=== PATIENT | female | born 1985 | race Caucasian/White ===

== ENCOUNTER → 2016-10-23 | Outpatient (CLI) | payer OTHER ==
[2016-10-22 14:17] VITALS: BMI 24.1
[2016-10-23 13:54] VITALS: BP 125/78; PULSE 90; RESP 18; TEMP 98
--- NOTE | 2016-10-24 11:42 | P.CONS ---
History of Present Illness - Reason for Consult Consult date: 10/23/16 - History of Present Illness This is initial consultation visit for this 30 years old female with a chronic history of severe low back pain, with radiation to the right lower extremity, she reported that the pain started after she had the surgical interventions/ removal of abdominal hemangioma, and she continued to have severe low back pain with radiation to the right lower extremity and some numbness and tingling sensation, but most of the pain is localized in the low back area, interfering with her quality of life , she continues to work , and she describes the intensity of the pain as 6/10 increased with any activity to 10 over 10, she never tried interventional pain management and she is currently on pain medication Motrin 800 mg every 8 hours and Neurontin 300 mg 3 times a day, and this medication is not helping enough, she denies any fever or night sweats. Denies any change in the bowel movement or urination. She denies any motor or sensory deficits Past Medical History Past Medical History: Musculoskeletal Disorder Additional Past Medical History / Comment(s): endometriosis History of Any Multi-Drug Resistant Organisms: None Reported Past Surgical History: Section, Cholecystectomy, Tonsillectomy, Tubal Ligation Additional Past Surgical History / Comment(s): lap, endoscopy ERCP x2 Past Anesthesia/Blood Transfusion Reactions: No Reported Reaction Past Psychological History: Anxiety, Depression Smoking Status: Current every day smoker Past Alcohol Use History: Rare Past Drug Use History: None Reported - Past Family History Mother Family Medical History: Cancer Medications and Allergies Home Medications Medication Instructions Recorded Confirmed Type Gabapentin [Neurontin] 300 mg PO TID 10/22/16 10/23/16 History Ibuprofen [Motrin] 800 mg PO Q8HR PRN 10/22/16 10/23/16 History Allergies Allergy/AdvReac Type Severity Reaction Status Date / Time doxycycline Allergy Rash/Hives Verified 10/23/16 13:49 oxycodone HCl [From Percocet] Allergy Nausea & Verified 10/23/16 13:49 Vomiting sulfamethoxazole Allergy Rash/Hives Verified 10/23/16 13:49 [From Bactrim] trimethoprim [From Bactrim] Allergy Rash/Hives Verified 10/23/16 13:49 Physical Exam Vitals: Vital Signs Temp Pulse Resp BP 10/23/16 13:50 98 F 90 18 125/78 Social history : smoker , NO ETOH , NO Illegal drugs us Review of Systems : 1- Constitutional : no chills , no fever , no night sweats , 2- Ears : no ear discharge , no change in hearing 3-Nose, Mouth ,Throat ; no bleeding gums, no sore throat , no epistaxis , 4-Cardiovascular : Denies chest pain, , no orthopnea , no palpitation 5-Respiratory : Denies cough , no dyspnea , no hemoptysis 6-Gastrointestinal :, no change in bowel habits , no coffee- ground emesis . 7-Genitourinary : No hematuria , no discharge , no incontinence, 8-Musculoskeletal : No gait dysfunction , report low back pain , 9- Neurological : no ataxia , no tremor , no sezure , 10-Psychatric , no suicidal ideation no hallucination 11- Endocrine : no cold intolerence , no polyuria , no polydypsia , 12-Hematologic : no easy bleeding , no easy brusing , 13-Allergic / immunology : no angioedema , no wheezing ,no allergic rhinitis 14-Integumentary : no brttle nails , no change hair / nails , no foot/leg ulcers . Physical Examinations : 1-Constitutional : Cooperative , not in acute distress . 2-HEENT : nech ; supple , no Lymphadenopathy , no Thyromegaly , :eyes , no icterus, no photophobia . ENT : , normal oropharynx , no Thrush 3- Respiratory : Chest clear to auscultations Bilaterally , no wheezing . 4- Cardiovascular : regular rate and rhythem , S1 , S2 , no S3 , no S4. 5- Gastrointestinal: abdomen soft no tenderness , no organomegally . 6- Genitourinary : Defferred . 7-Integumentary : No cellulitis , no ulcers , normal skin turgor , no cyanotic . 8- neurologic : Cranial nerve II to XII intact , no focal neurological deffecit 9-psychatric : alert , oriented X 3 , appropriate affect , intact judgment and insight . 10-Lymphatic : no Lymphadenopathy. 11- musculoskeltal: normal gait , exams of the cervical spine = motor stregnth in the deltoid and biceps, normal right side , normal Left side exams of the Lumber spine = moter stegnth lower extremities , thigh and legs 4/5 Right side , 5/5 Left side deep tendon reflexes : normal Knee Jerk , normal ankle Jerk positive lumber facet Loading Test Range of motion of the lumbar spine Flexion 30 degrees, extension 10 degrees strait leg raising test , positive right side at 30 degree , negative on the left side Fabere test positive RT , and negative LT . Moderate tenderness over the Sacroiliac joint on the right side Results Comments: MRI of the lumbar spine done 10/09/2016 At [facility] ; L4-L5/L5 -S1 lumbar facet hypertrophy, and there is mild central disc bulging at the L5- S1 Assessment and Plan Plan: Assessment and plan = - Lumbar radiculopathy , lumbar spondylosis with facet arthropathy without myelopathy , - diagnoses, prognosis, and treatment options including but not limited to physical therapy, surgical interventions, interventional therapies and medication management including narcotics and adjuvant medication were discussed with the patient and all questions answered to the patient's satisfaction. Patient should continue her current pain medication Motrin 800 mg 3 times a day and Neurontin 300 mg 3 times a day, and the patient should be good candidate done diagnostic medial branch blocks lumbar area at L3-4 /L4 5/L5-S1 benefits successful then we will proceed with a radiofrequency ablation of the medial branch lumbar area, if patient continues to have pain after the diagnostic medial branch block we will consider doing lumbar epidural steroid injection. This options discussed with the patient in details, and she is willing to proceed Time with Patient: Greater than 30
== END | disposition home or self-care (01) ==
LOC: PNWHC3 13:29
PROVIDERS: ATTEND Specialist
DX: M54.16 Radiculopathy, lumbar region (principal); M47.816 Spondylosis without myelopathy or radiculopathy, lumbar region; M12.9 Arthropathy, unspecified; M51.36 Other intervertebral disc degeneration, lumbar region; F17.200 Nicotine dependence, unspecified, uncomplicated; Z88.1 Allergy status to other antibiotic agents; Z88.5 Allergy status to narcotic agent; Z88.2 Allergy status to sulfonamides; Z79.899 Other long term (current) drug therapy
CPT/HCPCS: 99211

== ENCOUNTER 2016-11-27 08:45 | Day surgery (SDC) | payer OTHER ==
[2016-11-23 11:17] VITALS: BMI 24.8
[~2016-11-27 08:45] MED LIST: LACTATED RINGERS 1,000 ML IV SCH
[2016-11-27 09:18] VITALS: RESP 16; TEMP 98.1
[2016-11-27] MEDS ORDERED: LIDOCAINE 1% 20 ML VIAL (10MG/ML) FOR IV START INTRADERMA ONE (09:30)
[2016-11-27] MEDS ORDERED: TRIAMCINOLONE ACETONIDE 40 MG/ML 1 ML VIAL ONE (10:22)
[2016-11-27] MEDS ORDERED: BUPIVACAINE (PF) 0.5% 30 ML VIAL ONE (10:22)
[2016-11-27] MEDS ORDERED: MIDAZOLAM 2 MG/2 ML VIAL ONE (10:22)
[2016-11-27] MEDS ORDERED: fentaNYL (PF) 50 MCG/ML 2 ML AMP ONE (10:22)
[2016-11-27 10:56] VITALS: PULSE 64
--- NOTE | 2016-11-27 11:10 | FL ---
EXAMINATION TYPE: FL guided pain mgmt statistic DATE OF EXAM: 11/27/2016 10:58 AM HISTORY: Pain 19 sec fl, 4 films scanned
[2016-11-27 11:18] VITALS: BP 105/72
--- NOTE | 2016-11-27 11:22 | P.PCN ---
Date of Procedure: 11/27/16 Procedure(s) Performed: PREOPERATIVE DIAGNOSIS : 1- Lumbar spondylosis with Facet Arthropathy without myelopathy . POSTOPERATIVE DIAGNOSIS: 1- Lumbar spondylosis with Facet Arthropathy without myelopathy . PROCEDURE: Diagnostic bilateral L3 -4 , L4 -5 , and L5-S1 medial branch block under fluoroscopy ANESTHESIA: Local with 1% lidocaine 6 ml ; IV sedation with Versed 2 mg and Fentanyl 100 mcg. EBL: Minimal COMPLICATION: None. IV FLUIDS: 100 mL of normal saline. PROCEDURE INDICATION: Chronic low back pain secondary to Facet arthropathy unresponsive to conservative treatment. PROCEDURE DESCRIPTION: the patient was seen and identified in the preop holding area , risks and benefits and possible complications of the procedure and alternative were discussed with the patient, and the patient agreed to proceed with the procedure and signed the consent IV was started and vital signs monitored during the procedure and fluoroscopy was used to maximize the benefit and accuracy of the needle placement, and sedation was given to decrease patient anxiety, patient was taken to the procedure room and placed in prone position vital signs monitored in the back prepped with chlorhexidine X3 then under strict sterile technique using a right oblique fluoroscopy ,the junction of the transverse process and the superior articulating process of the right L3- 4 , L4- 5, and L5-S1 vertebra which corresponding to the fluoroscopy image of the eye of the Damion dog on the block side for the medial branches and subsequently , after local infiltration of skin and subcu tissuies with lidocaine 1% one mL at each level ,then 22- gauge Quincke-type needles , 3 needle was used , each one of them placed at the junction of the base of the transverse process and the superior articular process at the appropriate level, and the needle was advanced until the periosteum contacted, needle placement confirmed with AP oblique and lateral view and after appropriate needle placement confirmed, and after negative aspiration for heme and CSF and there was no paresthesia 1-1/2 mL of Marcaine 0.5% mixed with 40 mg Kenalog , then half mL injected at each level after negative aspiration the needle subsequently removed and the same procedure repeated for the left side at left side at L3-4, L4- 5 and L5-S1 levels. At the end of the procedure and the needles removed and a bandage applied after the skin was cleaned the cleaning solution patient taken to recovery room in stable condition and monitors in the recovery room for 20-30 minutes and discharged home in stable condition after discharge criteria met and patient will follow up with the pain clinic in 2-4 weeks
[2016-11-27] MEDS ORDERED: IV FLUID CONTINUATION 1,000 ML IV ONE (11:25)
== END 2016-11-27 11:35 | disposition home or self-care (01) ==
LOC: ORPAIN 08:45
PROVIDERS: ATTEND Specialist
DX: G89.29 Other chronic pain (principal); M54.5 Low back pain; M47.816 Spondylosis without myelopathy or radiculopathy, lumbar region; M46.96 Unspecified inflammatory spondylopathy, lumbar region; Z88.1 Allergy status to other antibiotic agents; Z88.2 Allergy status to sulfonamides; Z91.09 Other allergy status, other than to drugs and biological substances
CPT/HCPCS: 64493; 64494; 64495; 99152; 99153; J2250; J3301; J3010

== ENCOUNTER → 2017-01-23 | Outpatient (CLI) | payer OTHER ==
[2017-01-23 14:32] VITALS: BP 107/71; PULSE 88; RESP 16; TEMP 98.5
--- NOTE | 2017-01-24 21:22 | P.PN ---
Subjective This is a follow-up visit for this 31 years FEMALE with a chronic history of severe low back pain with radiation to the right lower extremity, diagnosed with lumbar radiculopathy and lumbar spondylosis with facet arthropathy, patient had diagnostic medial branch block lumbar area done a few weeks ago, she reports that she had no benefit from the diagnostic medial branch block her pain was the same before and after the injection and even she feels that her pain was increased after the diagnostic medial branch block, she continued to have severe low back pain localized in the right side with radiation to the buttock and right lower extremity and right foot, she feels that her right leg is cold and associated with pins and needles sensation, she continued to take Motrin 800 mg when necessary and Neurontin 400 mg 3 times a day, she is done physical therapy and she has only short-term benefit from, she denies any motor or sensory deficits she denies any fever or night sweats and no change in the bowel movement or urination Objective - Vital Signs Vital signs: Vital Signs Temp 98.5 F 01/23/17 14:25 Pulse 88 01/23/17 14:25 Resp 16 01/23/17 14:25 BP 107/71 01/23/17 14:25 Pulse Ox 98 01/23/17 14:25 - Exam Physical Examinations : 1-Constitutiona : Cooperative , not in acute distress . 2-HEENT : nech ; supple , no Lymphadenopathy , normal thyroid size . eyes : no ptosis , no icterus, no photophobia . ENT : normal of hearing , normal oropharynx , no Thrush . 3- Respiratory : Chest clear to auscultations Bilaterally , no wheezing , no Rhonchi . 4- Cardiovascular : regular rate and rhythem , S1 , S2 , no S3 , no S4. 5- Gastrointestinal : abdomen soft no tenderness , bowel sounds positive all four quadrents , no organomegally . 6- Genitourinary : Defferred . 7- neurologic : Cranial nerve II to XII intact , no focal neurological deffecit . 8-psychatric : alert , oriented X 3 , appropriate affect , intact judgment and insight . 9-Lymphatic : no Lymphadenopathy . 10- musculoskeltal : Lumber spine = normal moter stegnth lower extremities ,thigh and legs .5/5 deep tendon reflexes : normal Knee Jerk , normal ankle Jerk . positive lumber facet Loading Test strait leg raising test positive at 30 degree , Rt , negative left Fabere test positive RT and negative LT . Sever tenderness over the Sacroiliac joint on the Right Assessment and Plan Plan: Assessment and plan= -chronic low back pain secondary to lumbar radiculopathy , lumbar spondylosis with lumbar facet arthropathy without myelopathy, Patient had no benefit after the diagnostic medial branch block, she should continue her current medication Motrin 800 mg every 8 hours and Neurontin 400 mg 3 times a day, she is already nonphysical therapy without any benefit, she doesn't want to have any surgical referral/intervention at this Interventional pain management= patient will be scheduled to have lumbar epidural steroid injections under fluoroscopy guidance (right side direct ) Procedure risk and benefits and alternatives discussed with the patient and she wished to proceed , Time with Patient: Less than 30
== END ==
LOC: PNWHC3 13:34
PROVIDERS: ATTEND Specialist
DX: M47.26 Other spondylosis with radiculopathy, lumbar region (principal); M46.86 Other specified inflammatory spondylopathies, lumbar region; G89.29 Other chronic pain; Z79.891 Long term (current) use of opiate analgesic
CPT/HCPCS: 99211

== ENCOUNTER → 2017-02-07 | Outpatient (CLI) | payer OTHER ==
--- NOTE | 2017-02-07 17:19 | US ---
EXAMINATION TYPE: US transvaginal DATE OF EXAM: 02/07/2017 COMPARISON: 06/15/2014 CLINICAL HISTORY: 31-year-old female N92.1 Metrorrhagia. Constant bleeding since December 24 with only a few days without, hx of tubal ligation and TECHNIQUE: Multiple transvaginal sonographic images of the pelvis are obtained. Date of LMP: 12/24/2016, Findings: Uterus: Retroverted measuring 7.6 x 5.5 x 4.5 cm. There is diffuse myometrial heterogeneity. Endometrial Stripe: 0.5 cm, slightly heterogeneous but otherwise within normal limits. Right Ovary: 4.3 x 2.0 x 2.2 cm for a volume of 9.9 mL. Follicular change is present. Left Ovary: 4.8 x 2.8 x 2.5 cm for volume of 17.5 mL. Follicular change is present with a 3.1 cm dom inant follicle or functional cyst. Small amount of cul-de-sac free fluid is likely physiologic. No evidence of adnexal abnormality. IMPRESSION: 1. Retroverted uterus. 2. Heterogeneous myometrium could reflect a few small fibrotic change or adenomyosis. 3. Follicular change in both ovaries. 4. Small amount of cul-de-sac free fluid likely physiologic.
== END | disposition home or self-care (01) ==
LOC: RADUSMAIN 15:42
PROVIDERS: ATTEND Obstetrics & Gynecology
DX: N85.4 Malposition of uterus (principal); N83.01 Follicular cyst of right ovary; N83.02 Follicular cyst of left ovary
CPT/HCPCS: 76830

== ENCOUNTER 2017-02-21 11:29 | Day surgery (SDC) | payer OTHER ==
[2017-02-18 16:13] VITALS: BMI 25.1
[~2017-02-21 11:29] MED LIST changes: +LIDOCAINE 1% 20 ML VIAL (10MG/ML) FOR IV START INTRADERMA ONE
[2017-02-21 11:39] VITALS: RESP 16; TEMP 96.5
--- NOTE | 2017-02-21 12:27 | P.PCN ---
Date of Procedure: 02/21/17 Preoperative Diagnosis: Right lumbar radiculopathy Postoperative Diagnosis: Same as above Procedure(s) Performed: Lumbar epidural steroid injection under fluoroscopic guidance Implants: Anesthesia: none (Local anesthesia with moderate sedation) Surgeon: Anabell Mercado Pathology: none sent Condition: stable Disposition: PACU Indications for Procedure: Operative Findings: Description of Procedure: The patient was seen in preop holding area consent was obtained then she was brought into the procedure room and placed in prone position. Skin was prepped with Betadine 3 and draped in a sterile manner. Lidocaine 1% was used to numb the skin up at the target point was at the L5-S1 level in the right paramedian approach. I used 20-gauge 3-1/2 inch Touhy epidural needle with loss-of- resistance to air to identify the epidural space. There was positive loss-of- resistance to air, negative aspiration for any CSF or blood, negative paresthesia .I then injected 1 mL of Omnipaque which showed typical epidurogram with AP and lateral views of fluoroscopy after that I injected 80 mg of Kenalog +2 MLS of Marcaine 0.5% +4 MLS of preservative free normal saline to a total volume of 7 MLS in epidural space. Patient tolerated procedure well.
[2017-02-21] MEDS ORDERED: IV FLUID CONTINUATION 1,000 ML IV ONE (12:41)
[2017-02-21 12:58] VITALS: BP 107/71; PULSE 65
--- NOTE | 2017-02-21 13:12 | FL ---
EXAMINATION TYPE: FL guided pain mgmt statistic DATE OF EXAM: 02/21/2017 CLINICAL HISTORY: Low back pain. TECHNIQUE: Fluoroscopy. COMPARISON: None. FINDINGS: Fluoroscopic guidance was provided during pain relief procedure performed by Dr. Mercado . A total of 7 seconds of fluoroscopic time was utilized during the procedure and one spot intraopera tive image is acquired. Single image acquired shows needle localization at posterior facet level in the lower lumbar spine. IMPRESSION: As Above.
== END 2017-02-21 13:07 | disposition home or self-care (01) ==
LOC: ORPAIN 11:29
PROVIDERS: ATTEND Anesthesiology
DX: M54.16 Radiculopathy, lumbar region (principal); Z88.2 Allergy status to sulfonamides; Z91.09 Other allergy status, other than to drugs and biological substances
CPT/HCPCS: 81025; 62323; J2250; J3301; Q9965; J3010

== ENCOUNTER → 2017-04-10 | Outpatient (CLI) | payer OTHER ==
[2017-04-10 14:58] VITALS: BP 117/81; PULSE 89; RESP 16; TEMP 97.8
--- NOTE | 2017-04-10 15:12 | P.PN ---
Progress Note - Text This is a 31-year-old female with lower back pain with radiation to the right lower extremity down to the right foot with numbness and tingling however the patient's MRI does not show any changes that would explain this radiculopathy pain. The patient were emotional and crying during the interview. 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 It uses Neurontin and Motrin for this pain but these medications have not been controlling her pain well. She did not respond favorably to the lumbar medial branch block or to the lumbar epidural steroid injection. By Physical exam she does have significant tenderness around the right sacroiliac joint. Since her symptoms do not correlate with the lumbar MRI changes I am going to send her to a neurologist to have an EMG done on the right lower extremity. We will also schedule the patient to have right sacroiliac joint steroid injection under fluoroscopic guidance.
== END ==
LOC: PNWHC3 14:24
PROVIDERS: ATTEND Anesthesiology
DX: M54.16 Radiculopathy, lumbar region (principal); Z79.899 Other long term (current) drug therapy
CPT/HCPCS: 99211

== ENCOUNTER 2017-05-31 12:11 | Emergency (ER) | payer OTHER ==
[2017-05-31] MEDS ORDERED: SODIUM CHLORIDE 0.9% 500 ML IV STA (12:30)
[2017-05-31] MEDS ORDERED: ONDANSETRON 4 MG/2 ML VIAL IVP STA (12:30)
[2017-05-31] MEDS ORDERED: SODIUM CHLORIDE 0.9% 1,000 ML IV STA ×2 (12:30)
[2017-05-31] MEDS ORDERED: HYDROmorphone 1 MG/ML 1 ML SYRINGE IVP STA (12:30)
[2017-05-31] MEDS ORDERED: RX INFO: IV CONTRAST WAS GIVEN 1 EACH MISC MISCELLANE PRN (12:50)
[2017-05-31 12:56] LABS: Basophils % (A) 0 %; CH 33.9; CHCM 35.8; Eosinophils # (A) 0.1 k/uL (0-0.7); Eosinophils % (A) 1 %; HCT 38.3 % (34.0-46.0); HGB 13.2 gm/dL (11.4-16.0); Luc # (Auto) 0.15; Luc % (Auto) 1; Lymphocytes # (A) 2.1 k/uL (1.0-4.8); Lymphocytes % (A) 20 %; MCH 32.7 pg (25.0-35.0); MCHC 34.4 g/dL (31.0-37.0); MCV 95.1 fL (80.0-100.0); Mean Platelet Volume 8.1; Monocytes # (A) 0.5 k/uL (0-1.0); Monocytes % (A) 4 %; Neutrophils # (A) 7.6 k/uL (1.3-7.7); Neutrophils % (A) 73 %; RBC 4.02 m/uL (3.80-5.40); RDW 12.9 % (11.5-15.5); WBC 10.4 k/uL (3.8-10.6); WBC (Perox) 10.94
[2017-05-31 13:07] LABS: Partial Thromboplastin Time 23.7 sec (22.0-30.0); Prothrombin Time 10.2 sec (9.0-12.0)
--- NOTE | 2017-05-31 13:11 | ED ---
General Adult HPI - General Chief complaint: Abdominal Pain Stated complaint: Abd Pain Time Seen by Provider: 05/31/17 12:27 Source: patient, RN notes reviewed, old records reviewed Mode of arrival: ambulatory Limitations: no limitations - History of Present Illness Initial comments: This is a 31-year-old female to the ER for evaluation. This patient presents for evaluation regarding the bowel pain. Severe right upper quadrant abdominal pain. Patient has medical history for gallbladder disease and liver hemangioma. Patient has had her gallbladder removed. Denies any other abdominal surgery. Positive nausea no vomiting no fevers no diarrhea. Patient states the pain has been for about a week but significantly worse starting today. She can't take the pain anymore and is coming to the emergency room for evaluation at this time - Related Data Home Medications Medication Instructions Recorded Confirmed Ibuprofen [Motrin] 800 mg PO Q8HR PRN 10/22/16 05/31/17 Gabapentin [Neurontin] 400 mg PO BID 01/23/17 05/31/17 [id number] [id number] 2 tab PO Q4HR PRN 05/31/17 05/31/17 [Excedrin] Butalb/APAP/Caff 50-325-40Mg 1 tab PO Q4H PRN 05/31/17 05/31/17 [Fioricet 50-325-40] HYDROcodone/APAP 10-325MG [[place] 1 tab PO ONCE PRN 05/31/17 05/31/17 10-325] Allergies Allergy/AdvReac Type Severity Reaction Status Date / Time adhesive Allergy Rash/Hives Verified 05/31/17 13:25 doxycycline Allergy Rash/Hives Verified 05/31/17 13:25 oxycodone HCl [From Percocet] Allergy Nausea & Verified 05/31/17 13:25 Vomiting sulfamethoxazole Allergy Rash/Hives Verified 05/31/17 13:25 [From Bactrim] trimethoprim [From Bactrim] Allergy Rash/Hives Verified 05/31/17 13:25 Review of Systems ROS Statement: Those systems with pertinent positive or pertinent negative responses have been documented in the HPI. ROS Other: All systems not noted in ROS Statement are negative. Past Medical History Past Medical History: Musculoskeletal Disorder Additional Past Medical History / Comment(s): endometriosis History of Any Multi-Drug Resistant Organisms: None Reported Past Surgical History: Section, Cholecystectomy, Tonsillectomy, Tubal Ligation Additional Past Surgical History / Comment(s): lap removal of hemangioma, endoscopy X2, ERCP x2, oral surgery Past Anesthesia/Blood Transfusion Reactions: No Reported Reaction Past Psychological History: Anxiety, Depression Smoking Status: Current every day smoker Past Alcohol Use History: Rare Past Drug Use History: None Reported - Past Family History Mother Family Medical History: Cancer General Exam Limitations: no limitations General appearance: alert, in no apparent distress, anxious Head exam: Present: atraumatic, normocephalic, normal inspection Eye exam: Present: normal appearance, PERRL, EOMI. Absent: scleral icterus, conjunctival injection, periorbital swelling ENT exam: Present: normal exam, mucous membranes moist Neck exam: Present: normal inspection. Absent: tenderness, meningismus, lymphadenopathy Respiratory exam: Present: normal lung sounds bilaterally. Absent: respiratory distress, wheezes, rales, rhonchi, stridor Cardiovascular Exam: Present: normal rhythm, tachycardia, normal heart sounds. Absent: systolic murmur, diastolic murmur, rubs, gallop, clicks GI/Abdominal exam: Present: soft, normal bowel sounds. Absent: distended, tenderness, guarding, rebound, rigid Extremities exam: Present: normal inspection, full ROM, normal capillary refill. Absent: tenderness, pedal edema, joint swelling, calf tenderness Back exam: Present: normal inspection Neurological exam: Present: alert, oriented X3, CN II-XII intact Psychiatric exam: Present: normal affect, normal mood Skin exam: Present: warm, dry, intact, normal color. Absent: rash Course Vital Signs 05/31/17 05/31/17 12:14 13:17 Temperature 98.1 F Pulse Rate 113 H 109 H Respiratory 16 16 Rate Blood Pressure 132/81 127/76 O2 Sat by Pulse 99 99 Oximetry - Reevaluation(s) Reevaluation #1: 05/31/17 13:11 At this point patient is much more relaxed, with adequate pain control Reevaluation #2: 05/31/17 14:13 Patient remains with adequate pain control at this time. Medical Decision Making - Medical Decision Making 31 female in the ER the bowel pain, recurrent right upper quadrant abdominal pain. Patient is negative lab test, negative CT. Patient's pain is well- controlled at this time. Patient will be discharged home - Lab Data Result diagrams: 05/31/17 12:42 05/31/17 12:42 Lab Results 05/31/17 05/31/17 05/31/17 Range/Units 12:42 12:42 12:42 WBC 10.4 (3.8-10.6) k/uL RBC 4.02 (3.80-5.40) m/uL Hgb 13.2 (11.4-16.0) gm/dL Hct 38.3 (34.0-46.0) % MCV 95.1 (80.0-100.0) fL MCH 32.7 (25.0-35.0) pg MCHC 34.4 (31.0-37.0) g/dL RDW 12.9 (11.5-15.5) % Plt Count 223 (150-450) k/uL Neutrophils % 73 % Lymphocytes % 20 % Monocytes % 4 % Eosinophils % 1 % Basophils % 0 % Neutrophils # 7.6 (1.3-7.7) k/uL Lymphocytes # 2.1 (1.0-4.8) k/uL Monocytes # 0.5 (0-1.0) k/uL Eosinophils # 0.1 (0-0.7) k/uL Basophils # 0.0 (0-0.2) k/uL PT (9.0-12.0) sec INR (<1.2) APTT (22.0-30.0) sec Sodium 137 (137-145) mmol/L Potassium 4.0 (3.5-5.1) mmol/L Chloride 108 H (98-107) mmol/L Carbon Dioxide 19 L (22-30) mmol/L Anion Gap 10 mmol/L BUN 13 (7-17) mg/dL Creatinine 0.60 (0.52-1.04) mg/dL Est GFR (MDRD) Af Amer >60 (>60 ml/min/1.73 sqM) Est GFR (MDRD) Non-Af >60 (>60 ml/min/1.73 sqM) Glucose 96 (74-99) mg/dL Plasma Lactic Acid Remy (0.7-2.0) mmol/L Calcium 10.7 H (8.4-10.2) mg/dL Total Bilirubin 0.4 (0.2-1.3) mg/dL AST 20 (14-36) U/L ALT 27 (9-52) U/L Alkaline Phosphatase 72 (38-126) U/L Total Protein 7.3 (6.3-8.2) g/dL Albumin 4.4 (3.5-5.0) g/dL Amylase <30 L (30-110) U/L Lipase 48 (23-300) U/L Urine Color Urine Appearance (Clear) Urine pH (5.0-8.0) Ur Specific Rogers (1.001-1.035) Urine Protein (Negative) Urine Glucose (UA) (Negative) Urine Ketones (Negative) Urine Blood (Negative) Urine Nitrite (Negative) Urine Bilirubin (Negative) Urine Urobilinogen (<2.0) mg/dL Ur Leukocyte Esterase (Negative) Urine WBC (0-5) /hpf Ur Squamous Epith Cells (0-4) /hpf Amorphous Sediment (None) /hpf Urine Bacteria (None) /hpf Urine Mucus (None) /hpf Urine HCG, Qual Not Detected (Not Detectd) 05/31/17 05/31/17 05/31/17 Range/Units 12:42 12:42 12:42 WBC (3.8-10.6) k/uL RBC (3.80-5.40) m/uL Hgb (11.4-16.0) gm/dL Hct (34.0-46.0) % MCV (80.0-100.0) fL MCH (25.0-35.0) pg MCHC (31.0-37.0) g/dL RDW (11.5-15.5) % Plt Count (150-450) k/uL Neutrophils % % Lymphocytes % % Monocytes % % Eosinophils % % Basophils % % Neutrophils # (1.3-7.7) k/uL Lymphocytes # (1.0-4.8) k/uL Monocytes # (0-1.0) k/uL Eosinophils # (0-0.7) k/uL Basophils # (0-0.2) k/uL PT 10.2 (9.0-12.0) sec INR 1.0 (<1.2) APTT 23.7 (22.0-30.0) sec Sodium (137-145) mmol/L Potassium (3.5-5.1) mmol/L Chloride (98-107) mmol/L Carbon Dioxide (22-30) mmol/L Anion Gap mmol/L BUN (7-17) mg/dL Creatinine (0.52-1.04) mg/dL Est GFR (MDRD) Af Amer (>60 ml/min/1.73 sqM) Est GFR (MDRD) Non-Af (>60 ml/min/1.73 sqM) Glucose (74-99) mg/dL Plasma Lactic Acid Remy 0.9 (0.7-2.0) mmol/L Calcium (8.4-10.2) mg/dL Total Bilirubin (0.2-1.3) mg/dL AST (14-36) U/L ALT (9-52) U/L Alkaline Phosphatase (38-126) U/L Total Protein (6.3-8.2) g/dL Albumin (3.5-5.0) g/dL Amylase (30-110) U/L Lipase (23-300) U/L Urine Color Yellow Urine Appearance Cloudy H (Clear) Urine pH 5.5 (5.0-8.0) Ur Specific Rogers 1.010 (1.001-1.035) Urine Protein Negative (Negative) Urine Glucose (UA) Negative (Negative) Urine Ketones Negative (Negative) Urine Blood Negative (Negative) Urine Nitrite Negative (Negative) Urine Bilirubin Negative (Negative) Urine Urobilinogen <2.0 (<2.0) mg/dL Ur Leukocyte Esterase Moderate H (Negative) Urine WBC 2 (0-5) /hpf Ur Squamous Epith Cells 6 H (0-4) /hpf Amorphous Sediment Occasional H (None) /hpf Urine Bacteria Rare H (None) /hpf Urine Mucus Few H (None) /hpf Urine HCG, Qual (Not Detectd) - Radiology Data Radiology results: report reviewed (CT abdomen and pelvis is negative for acute disease), image reviewed Disposition Clinical Impression: Abdominal pain Disposition: HOME SELF-CARE Condition: Good Instructions: Abdominal Pain (ED) Referrals: Meryl Foley MD [Primary Care Provider] - 1-2 days
[2017-05-31 13:12] LABS: ALT 27 U/L (9-52); AST 20 U/L (14-36); Alkaline Phosphatase 72 U/L (38-126); Amylase <30 U/L (30-110); Anion Gap 10 mmol/L; Blood Urea Nitrogen 13 mg/dL (7-17); Calcium 10.7 mg/dL (8.4-10.2); Carbon Dioxide 19 mmol/L (22-30); Chloride 108 mmol/L (98-107); Glucose 96 mg/dL (74-99); Non-African American GFR(MDRD) >60 (>60 ml/min/1.73 sqM); Sodium 137 mmol/L (137-145); Total Bilirubin 0.4 mg/dL (0.2-1.3); Total Protein 7.3 g/dL (6.3-8.2)
[2017-05-31 13:19] LABS: Amorphous Sediment,Urine Occasional /hpf; Appearance,Urine Cloudy (Clear); Bacteria,Urine Rare /hpf; Bilirubin,Urine Negative (Negative); Glucose,Urine (UA) Negative (Negative); Ketones,Urine Negative (Negative); Leukocyte Esterase,Urine Moderate (Negative); Mucus,Urine Few /hpf; Nitrite,Urine Negative (Negative); PH, Urine 5.5 (5.0-8.0); Particle Count 6817; Protein,Urine Negative (Negative); Squamous Epithelial Cell,Urine 6 /hpf (0-4); UA Billing (MACRO vs. MICRO) MICRO; Urobilinogen,Urine <2.0 mg/dL (<2.0); WBC,Urine 2 /hpf (0-5)
--- NOTE | 2017-05-31 13:47 | CT ---
EXAMINATION TYPE: CT abdomen pelvis w con DATE OF EXAM: 05/31/2017 COMPARISON: CT abdomen pelvis 05/21/2013 INDICATION: Patient complains of RUQ pain and history of "blood tumors." DLP: 584.3 mGycm, Automated exposure control for dose reduction was used. CONTRAST: 100 mL of Omnipaque 300. Study performed without Oral Contrast TECHNIQUE: Axial images were obtained from above the diaphragm to the pubic rami in the axial plane a t 5 mm thick sections. Reconstructed images are reviewed on the computer in the coronal plane. FINDINGS: Limited CT sections are obtained the lung bases. The lung bases are clear. CT ABDOMEN: Liver: Normal Spleen: Normal Pancreas: Normal Adrenal glands: The adrenal glands are normal. Gallbladder: Surgically absent. Kidneys: No masses are evident. No hydronephrosis is present. No cysts are present. Delayed images were obtained through the kidneys, which remain unremarkable. Aorta: Normal Inferior vena cava: Normal. CT PELVIS: Loops of bowel within the abdomen and pelvis are normal. There are loops of bowel which are incom pletely distended or lack oral contrast limiting their evaluation. Appendix: Normal as visualized. Urinary bladder: Normal. Genitourinary structures: Uterus is normal. Follicles appear to be present on the ovaries, more evide nt on the right. Free fluid is within the pelvis. This may be physiologic. Osseous structures: No suspicious lytic or sclerotic lesions. IMPRESSIONS: 1. No acute abnormality.
[2017-05-31 14:31] VITALS: BP 137/76; PULSE 100; RESP 18; TEMP 97.8
== END 2017-05-31 14:55 | disposition home or self-care (01) ==
LOC: EC 12:11
DX: R10.11 Right upper quadrant pain (principal); R11.0 Nausea; N80.9 Endometriosis, unspecified; F17.200 Nicotine dependence, unspecified, uncomplicated; Z90.49 Acquired absence of other specified parts of digestive tract; Z98.51 Tubal ligation status; Z79.899 Other long term (current) drug therapy; Z91.048 Other nonmedicinal substance allergy status; Z88.1 Allergy status to other antibiotic agents; Z88.5 Allergy status to narcotic agent; Z88.2 Allergy status to sulfonamides
CPT/HCPCS: 99284 ×2; 96374 ×2; 96375 ×2; 96361 ×3; 36415; 80053; 82150; 83605; 83690; 85025; 85610; 85730; 81001; 81025; 87086; 74177; J2405; J1170; Q9967

== ENCOUNTER → 2017-12-13 | Outpatient (CLI) | payer OTHER ==
--- NOTE | 2017-12-14 11:11 | US ---
EXAMINATION TYPE: US transvaginal DATE OF EXAM: 12/13/2017 COMPARISON: US & CT CLINICAL HISTORY: R10.2 Pelvic peroneal pain. TECHNIQUE: Transvaginal (TV). Date of LMP: 11/23/2017 EXAM MEASUREMENTS: Uterus: 8.5 x 5.3 x 5.7 cm Endometrial Stripe: 0.5 cm, cm Right Ovary: 4.7 x 3.7 x 2.9 cm Left Ovary: 2.9 x 1.7 x 2.3 cm 1. Uterus: Retroverted wnl 2. Endometrium: wnl 3. Right Ovary: complex lesion measures 2.3 x 2.4 x 2.5 cm. 4. Left Ovary: wnl 5. Bilateral Adnexa: wnl 6. Posterior cul-de-sac: small amount of free fluid IMPRESSION: 1. Complex right ovarian lesion with internal echoes may reflect hemorrhagic cyst. Lesion of other et iology not excluded. Follow-up in 6 weeks advised.
--- NOTE | 2017-12-16 09:09 | MM ---
Reason for exam: screening (asymptomatic). Baseline mammogram. Physical Findings: Nurse did not find any significant physical abnormalities on exam. MG Diagnostic Mammo w CAD GONSALO Bilateral CC and MLO view(s) were taken. The breast tissue is heterogeneously dense. This may lower the sensitivity of mammography. There is no discrete abnormality. These results were verbally communicated with the patient and result sheet given to the patient on 12/13/17. ASSESSMENT: Incomplete: need additional imaging evaluation, BI-RAD 0 RECOMMENDATION: Ultrasound of the left breast. (palpable) [facility] will attempt to contact patient to return for ultrasound.
--- NOTE | 2017-12-16 09:13 | USB ---
Reason for exam: additional evaluation requested from abnormal screening. Physical Findings: Breast exam preformed at baseline screening. US Breast Limited LT Left breast ultrasound demonstrates no cystic or solid lesion seen. These results were verbally communicated with the patient and result sheet given to the patient on 12/13/17. ASSESSMENT: Negative, BI-RAD 1 RECOMMENDATION: Routine screening mammogram of both breasts at age 38. Manage on a clinical basis with regard to left pain.
== END | disposition home or self-care (01) ==
LOC: RADMAMWWP 15:59
PROVIDERS: ATTEND Obstetrics & Gynecology
DX: N64.4 Mastodynia (principal); N63.0 Unspecified lump in unspecified breast; R92.8 Other abnormal and inconclusive findings on diagnostic imaging of breast; N83.8 Other noninflammatory disorders of ovary, fallopian tube and broad ligament
CPT/HCPCS: 76830; 77066

== ENCOUNTER → 2018-03-21 | Outpatient (CLI) | payer OTHER ==
--- NOTE | 2018-03-22 15:27 | MR ---
EXAMINATION TYPE: MR brain/cspine wo DATE OF EXAM: 03/21/2018 COMPARISON: None HISTORY: migraines, neck pain CONTRAST: Performed utilizing 0 mL intravenous Gadavist gadolinium contrast. TECHNIQUE: Multiplanar, multiecho imaging on a 3.0 Reyna magnet is performed through the brain. Stud y is performed within 24 hours of arrival to the hospital. The craniovertebral junction is normal. The pituitary is normal. Diffusion-weighted imaging is performed. No abnormal hyperintensity is present to suggest an acute i ntracranial infarct or acute ischemic change. Signal through the brain appears normal. Ventricles and sulci are appropriate for the patient age. IMPRESSIONS: 1. Normal MRI brain. EXAMINATION TYPE: MR brain/cspine wo DATE OF EXAM: 03/21/2018 COMPARISON: None HISTORY: migraines, neck pain CONTRAST: Performed utilizing 0 mL intravenous Gadavist gadolinium contrast. TECHNIQUE: Multiplanar multiecho imaging on a 3.0 Reyna magnet is performed through the cervical spin e. FINDINGS: The craniovertebral junction is normal. Vertebral body alignment is normal. C7-T1: No focal disc herniation or significant disc bulge is evident. No spinal canal stenosis or n eural foraminal stenosis is present. C6-7: Mild disc bulge has anterior thecal sac contact. No cord contact is evident. No spinal canal st enosis or neural foraminal stenosis is present.. C5-6: Broad-based disc bulge is present with moderate anterior thecal sac compression. In the sagitta l plane there is a suggestion there may be some subligamentous disc extension beyond the endplates of C5-6. This is in close approximation with spinal cord. No cord deformity is evident. No spinal canal stenosis is present. Uncovertebral joint hypertrophy and/or disc bulge may cause moderate right fora sonido narrowing. Disc desiccation may be present.. C4-5: No focal disc herniation or significant disc bulge is evident. No spinal canal stenosis or jazmine ral foraminal stenosis is present. C3-4: No focal disc herniation or significant disc bulge is evident. No spinal canal stenosis or jazmine ral foraminal stenosis is present. C2-3: No focal disc herniation or significant disc bulge is evident. No spinal canal stenosis or jazmine ral foraminal stenosis is present. IMPRESSIONS: 1. Disc bulge with possible subligamentous disc extension C5-6 with moderate anterior thecal sac comp ression. Close approximation with spinal cord without cord contact or deformity. 2. Moderate right foraminal narrowing C5-6
--- NOTE | 2018-03-23 10:06 | MR ---
EXAMINATION TYPE: MR lumbar spine wo con DATE OF EXAM: 03/21/2018 COMPARISON: None HISTORY: Lumbago CONTRAST: 0 mL intravenous Gadavist. TECHNIQUE: Multiplanar, multisequence images of the lumbar spine were acquired. FINDINGS: Cord terminates at the L1-2 level. Disc hydration levels are normal. Disc heights are preserved. Vertebral body heights are preserved. A lignment is normal. No suspicious disc bulge is evident. No spinal canal stenosis or neural foraminal stenosis is present. Facets are unremarkable. IMPRESSION: 1. Normal noncontrast MRI lumbar spine.
== END | disposition home or self-care (01) ==
LOC: RADMRIMAIN 16:24
PROVIDERS: ATTEND Psychiatry & Neurology Pain Medicine
DX: M99.71 Connective tissue and disc stenosis of intervertebral foramina of cervical region (principal); M50.222 Other cervical disc displacement at C5-C6 level; M54.5 Low back pain; R51 Headache; Z88.2 Allergy status to sulfonamides; Z88.1 Allergy status to other antibiotic agents; Z91.010 Allergy to peanuts; Z91.048 Other nonmedicinal substance allergy status
CPT/HCPCS: 70551; 72141; 72148

== ENCOUNTER → 2018-04-25 | Outpatient (CLI) | payer OTHER ==
[2018-04-25 17:03] LABS: HCT 37.1 % (34.0-46.0); HGB 12.5 gm/dL (11.4-16.0); MCH 31.4 pg (25.0-35.0); MCHC 33.7 g/dL (31.0-37.0); MCV 93.2 fL (80.0-100.0); Mean Platelet Volume 7.9; Platelet Count 223 k/uL (150-450); RBC 3.98 m/uL (3.80-5.40); RDW 11.8 % (11.5-15.5); WBC 8.3 k/uL (3.8-10.6)
[2018-04-25 17:17] LABS: ALT 15 U/L (9-52); AST 17 U/L (14-36); Albumin 4.2 g/dL (3.5-5.0); Alkaline Phosphatase 51 U/L (38-126); Anion Gap 7 mmol/L; Blood Urea Nitrogen 14 mg/dL (7-17); Calcium 10.2 mg/dL (8.4-10.2); Carbon Dioxide 27 mmol/L (22-30); Chloride 106 mmol/L (98-107); Glucose 79 mg/dL (74-99); Potassium 4.4 mmol/L (3.5-5.1); Sodium 140 mmol/L (137-145); Total Bilirubin 0.2 mg/dL (0.2-1.3); Total Protein 6.7 g/dL (6.3-8.2)
== END ==
LOC: LABWHC1 16:13
PROVIDERS: ATTEND Psychiatry & Neurology Pain Medicine
DX: H53.8 Other visual disturbances (principal); R51 Headache
CPT/HCPCS: 36415; 80053; 83735; 85027

== ENCOUNTER 2018-05-30 15:02 | Emergency (ER) | payer OTHER ==
[2018-05-30 15:24] VITALS: BP 117/81; TEMP 98.1
--- NOTE | 2018-05-30 15:37 | ED ---
General Adult HPI - General Chief complaint: Upper Respiratory Infection Stated complaint: congestion,cough Time Seen by Provider: 05/30/18 15:28 Source: patient, RN notes reviewed Mode of arrival: ambulatory Limitations: no limitations - History of Present Illness Initial comments: Patient 32-year-old female presented to the emergency room today with chief complaint of cough congestion over the last 8 days. She states for the past 3 days she's had some back pain. She states it feels like she pulled muscle. Patient does admit that the pain is constant but worse when she coughs. Patient says she's been using ibuprofen. She states she cannot seem to stop coughing. She does admit that there was some sputum production days ago but has since stopped. Patient denies any other complaints. Patient denies any recent travel. Denies any leg pain or swelling. Denies any OCP's. Patient denies any recent fever, chills, shortness of breath, chest pain, abdominal pain , nausea or vomiting, numbness or tingling, headaches or visual changes, or any other complaints. - Related Data Home Medications Medication Instructions Recorded Confirmed Ibuprofen [Motrin] 800 mg PO Q8HR PRN 10/22/16 05/31/17 Gabapentin [Neurontin] 400 mg PO BID 01/23/17 05/31/17 [id number]-[id number]-[id number] 2 tab PO Q4HR PRN 05/31/17 05/31/17 [Excedrin] Butalb/APAP/Caff 50-325-40Mg 1 tab PO Q4H PRN 05/31/17 05/31/17 [Fioricet 50-325-40] HYDROcodone/APAP 10-325MG [[place] 1 tab PO ONCE PRN 05/31/17 05/31/17 10-325] Previous Rx's Medication Instructions Recorded Famotidine [Pepcid] 40 mg PO BID #60 tab 05/31/17 HYDROcodone/APAP 5-325MG [[place] 1 tab PO Q6HR PRN #20 tab 05/31/17 5-325] Ondansetron Odt [Zofran ODT] 4 mg PO Q8HR PRN #30 tab 05/31/17 Pantoprazole Sodium [Protonix] 40 mg PO DAILY #30 tablet.dr 05/31/17 Benzonatate [Tessalon Perles] 100 mg PO TID PRN #20 capsule 05/30/18 predniSONE 50 mg PO DAILY #5 tab 05/30/18 Allergies Allergy/AdvReac Type Severity Reaction Status Date / Time adhesive Allergy Rash/Hives Verified 05/31/17 13:25 doxycycline Allergy Rash/Hives Verified 05/31/17 13:25 oxycodone HCl [From Percocet] Allergy Nausea & Verified 05/31/17 13:25 Vomiting sulfamethoxazole Allergy Rash/Hives Verified 05/31/17 13:25 [From Bactrim] trimethoprim [From Bactrim] Allergy Rash/Hives Verified 05/31/17 13:25 Review of Systems ROS Statement: Those systems with pertinent positive or pertinent negative responses have been documented in the HPI. ROS Other: All systems not noted in ROS Statement are negative. Past Medical History Past Medical History: Musculoskeletal Disorder Additional Past Medical History / Comment(s): endometriosis History of Any Multi-Drug Resistant Organisms: None Reported Past Surgical History: Section, Cholecystectomy, Tonsillectomy, Tubal Ligation Additional Past Surgical History / Comment(s): lap removal of hemangioma, endoscopy X2, ERCP x2, oral surgery Past Anesthesia/Blood Transfusion Reactions: No Reported Reaction Past Psychological History: Anxiety, Depression Smoking Status: Current every day smoker Past Alcohol Use History: Rare Past Drug Use History: None Reported - Past Family History Mother Family Medical History: Cancer General Exam - General Exam Comments Initial Comments: General: The patient is awake and alert, in no distress, and does not appear acutely ill. Eye: Pupils are equal, round and reactive to light. Extra-ocular movements are intact. No nystagmus. There is normal conjunctiva bilaterally. No signs of icterus. Ears, nose, mouth and throat: There are moist mucous membranes and no oral lesions. Neck: The neck is supple, there is no tenderness or JVD. Cardiovascular: There is a regular rate and rhythm. No murmur, rub or gallop is appreciated. Respiratory: Lungs are clear to auscultation, respirations are non-labored, breath sounds are equal. No wheezes, stridor, rales, or rhonchi. Musculoskeletal: Normal ROM, no tenderness. Sensation intact. Strength 5/5. Pulses equal bilaterally 2+. Neurological: A&O x 3. CN II-XII intact, There are no obvious motor or sensory deficits. Coordination appears grossly intact. Speech is normal. Skin: Skin is warm and dry and no rashes or lesions are noted. Psychiatric: Cooperative, appropriate mood & affect, normal judgment. Limitations: no limitations Course Vital Signs 05/30/18 15:22 Temperature 98.1 F Pulse Rate 85 Respiratory 18 Rate Blood Pressure 117/81 O2 Sat by Pulse 99 Oximetry Medical Decision Making - Medical Decision Making Patient's chest x-ray reviewed as negative for any acute abnormality. Patient' s vitals are stable. Patient does admit to cough congestion over the past week and last 3 days and have some upper back pain with the cough that is worse. It is worse on palpation to the upper back. This felt musculoskeletal from coughing. Patient's advised continue anti-inflammatories. Patient will prescription cough medication, steroids. She is advised on management. The emergency room symptoms increase or worsen Disposition Clinical Impression: Upper respiratory infection, Upper back strain Disposition: HOME SELF-CARE Condition: Good Instructions: Upper Respiratory Infection (ED) Additional Instructions: Please use medication as discussed. Please follow-up with family doctor in the next 2 days of symptoms have not improved. Please return to emergency room if the symptoms increase or worsen or for any other concerns. Prescriptions: Benzonatate [Tessalon Perles] 100 mg PO TID PRN #20 capsule PRN Reason: Cough predniSONE 50 mg PO DAILY #5 tab Is patient prescribed a controlled substance at d/c from ED?: No Referrals: Meryl Foley MD [Primary Care Provider] - 1-2 days Time of Disposition: 16:21
--- NOTE | 2018-05-30 16:10 | XR ---
EXAMINATION TYPE: XR chest 2V DATE OF EXAM: 05/30/2018 COMPARISON: 01/01/2014 HISTORY: Chest pain TECHNIQUE: Frontal and lateral views of the chest are obtained. FINDINGS: There is no focal air space opacity. No evidence for pneumothorax. No pleural effusion. The cardiac silhouette size is within normal limits. The osseous structures are grossly intact. IMPRESSION: 1. No acute cardiopulmonary process.
[2018-05-30 16:34] VITALS: PULSE 83; RESP 20
== END 2018-05-30 16:34 | disposition home or self-care (01) ==
LOC: EC 15:02
DX: S29.012A Strain of muscle and tendon of back wall of thorax, initial encounter (principal); J06.9 Acute upper respiratory infection, unspecified; F17.200 Nicotine dependence, unspecified, uncomplicated; Z79.899 Other long term (current) drug therapy; Z88.1 Allergy status to other antibiotic agents; Z88.2 Allergy status to sulfonamides; Z88.8 Allergy status to other drugs, medicaments and biological substances; Z91.048 Other nonmedicinal substance allergy status
CPT/HCPCS: 71046; 99283

== ENCOUNTER 2019-12-01 08:30 | Emergency (ER) | payer OTHER ==
--- NOTE | 2019-12-01 08:52 | ED ---
Fall HPI - General Chief Complaint: Fall Stated Complaint: fell on saturday, R side shoulder pain Time Seen by Provider: 12/01/19 08:38 Source: patient, RN notes reviewed Mode of arrival: ambulatory Limitations: no limitations - History of Present Illness Initial Comments: This a 33-year-old female presents emergency Department with chief complaint of a fall on Saturday. Patient states she was in her ditch cleaned out she states that she had some hedge clippers states that her foot Stuck and she turned, twisted and fell to the ground. She states she's not exactly sure how she fell on her shoulder and she complains of right shoulder pain that goes into her thoracic back but denies any spinal pain. Patient denies any low back pain. She does admit that she has some right hip pain that feels bruised she has been trying to do some stretching she denies any difficulty ambulating other than feeling some mild discomfort. She denies any bowel incontinence or bladder retention denies any saddle anesthesias. She has no current abdominal pain no head injury no neck discomfort. She states she's been taking some Tylenol Motrin which has not been helping much of her pain she states that she feels that she's having muscle spasms. Patient offers no other complaints at this time. - Related Data Home Medications Medication Instructions Recorded Confirmed Ibuprofen [Motrin] 800 mg PO Q8HR PRN 10/22/16 05/31/17 Gabapentin [Neurontin] 400 mg PO BID 01/23/17 05/31/17 [id number] [id number] 2 tab PO Q4HR PRN 05/31/17 05/31/17 [Excedrin] Butalb/APAP/Caff 50-325-40Mg 1 tab PO Q4H PRN 05/31/17 05/31/17 [Fioricet 50-325-40] HYDROcodone/APAP 10-325MG [[place] 1 tab PO ONCE PRN 05/31/17 05/31/17 10-325] Previous Rx's Medication Instructions Recorded Famotidine [Pepcid] 40 mg PO BID #60 tab 05/31/17 HYDROcodone/APAP 5-325MG [[place] 1 tab PO Q6HR PRN #20 tab 05/31/17 5-325] Ondansetron Odt [Zofran ODT] 4 mg PO Q8HR PRN #30 tab 05/31/17 Pantoprazole Sodium [Protonix] 40 mg PO DAILY #30 tablet. 05/31/17 Benzonatate [Tessalon Perles] 100 mg PO TID PRN #20 capsule 05/30/18 predniSONE 50 mg PO DAILY #5 tab 05/30/18 Cyclobenzaprine [Flexeril] 10 mg PO TID PRN #15 tab 12/01/19 Ibuprofen [Motrin] 600 mg PO Q8HR PRN #20 tab 12/01/19 Allergies Allergy/AdvReac Type Severity Reaction Status Date / Time adhesive Allergy Rash/Hives Verified 12/01/19 08:38 doxycycline Allergy Rash/Hives Verified 12/01/19 08:38 oxycodone HCl [From Percocet] Allergy Nausea & Verified 12/01/19 08:38 Vomiting sulfamethoxazole Allergy Rash/Hives Verified 12/01/19 08:38 [From Bactrim] trimethoprim [From Bactrim] Allergy Rash/Hives Verified 12/01/19 08:38 Review of Systems ROS Statement: Those systems with pertinent positive or pertinent negative responses have been documented in the HPI. ROS Other: All systems not noted in ROS Statement are negative. Past Medical History Past Medical History: Musculoskeletal Disorder Additional Past Medical History / Comment(s): endometriosis, chronic back pain, migraines, sacroileitis History of Any Multi-Drug Resistant Organisms: None Reported Past Surgical History: Section, Cholecystectomy, Hysterectomy, Tonsillectomy, Tubal Ligation Additional Past Surgical History / Comment(s): lap removal of hemangioma, endoscopy X2, ERCP x2, oral surgery Past Anesthesia/Blood Transfusion Reactions: No Reported Reaction Past Psychological History: Anxiety, Depression Smoking Status: Current every day smoker Past Alcohol Use History: Rare Past Drug Use History: None Reported - Past Family History Mother Family Medical History: Cancer General Exam Limitations: no limitations General appearance: alert, in no apparent distress Head exam: Present: atraumatic, normocephalic, normal inspection Eye exam: Present: normal appearance, PERRL, EOMI. Absent: scleral icterus, conjunctival injection, periorbital swelling ENT exam: Present: normal exam, normal oropharynx, mucous membranes moist Neck exam: Present: normal inspection, full ROM. Absent: tenderness (Patient reports no tenderness of the cervical spine or paraspinal muscles), meningismus, lymphadenopathy Respiratory exam: Present: normal lung sounds bilaterally. Absent: respiratory distress, wheezes, rales, rhonchi, stridor, chest wall tenderness, decreased breath sounds, prolonged expiratory Cardiovascular Exam: Present: regular rate (Patient was noted to have heart rate of 115 on triage though during exam 88), normal rhythm, normal heart sounds. Absent: systolic murmur, diastolic murmur, rubs, gallop, clicks GI/Abdominal exam: Present: soft, normal bowel sounds. Absent: distended, tenderness, guarding, rebound, rigid Extremities exam: Present: other (Right shoulder slightly decreased range of motion secondary to pain, neurovascular intact upper and lower extremities, no obvious deformity no ecchymosis noted no abrasions. Patient reports right shoulder tenderness on the lateral aspect, posterior aspect. No clavicular tenderness full range of motion of the right elbow, wrist, hand right hip is mildly tender diffusely with palpation patient has full range of motion and neurovascular intact) Back exam: Present: normal inspection, full ROM, tenderness (Patient reports mild tenderness with palpation to the paraspinal no thoracic or lumbar spinal tenderness), paraspinal tenderness. Absent: vertebral tenderness Neurological exam: Present: alert, oriented X3, CN II-XII intact, reflexes normal. Absent: motor sensory deficit Skin exam: Present: warm, dry, intact, normal color. Absent: rash Course Vital Signs 12/01/19 12/01/19 08:31 09:36 Temperature 97.7 F 98.3 F Pulse Rate 115 H 83 Respiratory 20 18 Rate Blood Pressure 113/80 100/66 O2 Sat by Pulse 98 97 Oximetry Medical Decision Making - Medical Decision Making X-rays reviewed which show no acute osseous abnormality. Patient was provided pain control in emergency department. Patient pain is improved at this time. Patient was able to ambulate in the emergency department and in the room with no significant difficulty. She is neurologically intact. Patient will be discharged in stable condition with pain control. Patient will follow-up with primary care physician. Patient was provided orthopedics at this time. Disposition Clinical Impression: Fall, Sprain of right shoulder, Contusion of right hip, Spasm of thoracic back muscle Disposition: HOME SELF-CARE Condition: Stable Instructions (If sedation given, give patient instructions): Shoulder Sprain (ED), Hip Contusion (ED) Additional Instructions: Please return to the Emergency Department if symptoms worsen or any other concerns. Prescriptions: Cyclobenzaprine [Flexeril] 10 mg PO TID PRN #15 tab PRN Reason: Muscle Spasm Ibuprofen [Motrin] 600 mg PO Q8HR PRN #20 tab PRN Reason: Pain Is patient prescribed a controlled substance at d/c from ED?: No Referrals: Lisa Palmer FNPBC [REFERRING] - 1-2 days Og Escobar DO [Medical Doctor] - 1-2 days Time of Disposition: 09:57
[2019-12-01] MEDS ORDERED: ORPHENADRINE 30 MG/ML 2 ML VIAL IM STA (09:24)
[2019-12-01] MEDS ORDERED: MORPHINE SULFATE 4 MG/ML SYRINGE IM STA (09:24)
--- NOTE | 2019-12-01 09:32 | XR ---
EXAMINATION TYPE: XR Hip Complete RT DATE OF EXAM: 12/01/2019 COMPARISON: None HISTORY: Fall, pain TECHNIQUE: 2 view right hip FINDINGS: Femoral head articulates with the acetabulum. No acute fractures or dislocations are eviden t. Soft tissues are unremarkable. IMPRESSION: 1. Normal 2 view right hip
--- NOTE | 2019-12-01 09:32 | XR ---
EXAMINATION TYPE: XR shoulder complete RT DATE OF EXAM: 12/01/2019 COMPARISON: NONE HISTORY: Pain TECHNIQUE: Shoulder examined in 3 projections FINDINGS: The humeral head articulates with the glenoid. The acromio-clavicular junction is normal. No acute fractures or dislocations are evident. A follow up study can be performed 7-10 days from acute trauma for continued pain. IMPRESSION: 1. Normal three-view right Shoulder
--- NOTE | 2019-12-01 09:33 | XR ---
EXAMINATION TYPE: XR thoracic spine 2V DATE OF EXAM: 12/01/2019 COMPARISON: None HISTORY: Fall, pain TECHNIQUE: 3 view thoracic spine FINDINGS: Mild scoliosis present with the convexity to the right centered at T10. There are 12 thoracic type vertebral bodies. Pedicles are intact. Disc heights are preserved. Vertebr al body heights are preserved. IMPRESSION: 1. Mild scoliosis which can be related to patient positioning or muscle spasm. 2. No acute osseous abnormality.
[2019-12-01 09:37] VITALS: BP 100/66; PULSE 83; RESP 18; TEMP 98.3
[2019-12-01] MEDS ORDERED: ACET/COD 300 MG/30 MG STARTER PACK 6 TAB BTL PO STA (09:58)
== END 2019-12-01 10:06 | disposition home or self-care (01) ==
LOC: EC 08:30 → SUPCPDRO 08:30 → EC 10:06
DX: S43.401A Unspecified sprain of right shoulder joint, initial encounter (principal); M62.830 Muscle spasm of back; F17.200 Nicotine dependence, unspecified, uncomplicated; Z91.048 Other nonmedicinal substance allergy status; Z88.1 Allergy status to other antibiotic agents; Z88.2 Allergy status to sulfonamides; Z88.5 Allergy status to narcotic agent; W19.XXXA Unspecified fall, initial encounter
CPT/HCPCS: 72070; 73502; 73030; 99283; 96372 ×2; J2270; J2360

== ENCOUNTER → 2020-02-01 | Outpatient (CLI) | payer OTHER ==
--- NOTE | 2020-02-01 21:13 | MR ---
EXAMINATION TYPE: MR shoulder RT wo con DATE OF EXAM: 02/01/2020 COMPARISON: Radiograph 12/31/2019 HISTORY: 34-year-old female with right shoulder pain after fall TECHNIQUE: Multiplanar, multisequence imaging of the right shoulder is performed without contrast. FINDINGS: Long head biceps tendon is intact. Subscapularis tendon is intact. AC joint is intact. Both supraspinatus and infraspinatus tendons are intact with trace fluid in the subdeltoid and subacr omial bursa. Evaluation of the glenohumeral joint shows physiologic joint fluid. Glenohumeral joint articular cart ilage is maintained. A defect along the labral chondral junction of the anterior superior glenoid suggests a sublabral for amen. However, there is some increased signal extending into the substance of the labrum posterior to the biceps anchor extending to the superior aspect of the posterior labrum. No para labral cyst. No Hill-Sachs deformity or os acromiale. No suspicious bone marrow replacement. IMPRESSION: 1. No rotator cuff tendon tear. 2. Findings suspicious for a small SLAP tear.
== END | disposition home or self-care (01) ==
LOC: RADMRIMAIN 14:57
PROVIDERS: ATTEND Orthopaedic Surgery
DX: M25.511 Pain in right shoulder (principal)

== ENCOUNTER 2020-03-21 16:09 | Emergency (ER) | payer OTHER ==
[2020-03-21 16:16] VITALS: BP 109/69; PULSE 82; RESP 20; TEMP 98.2
--- NOTE | 2020-03-21 17:46 | CT ---
EXAMINATION TYPE: CT brain cspine wo con DATE OF EXAM: 03/21/2020 COMPARISON: MRI brain and cervical spine March 21, 2018 HISTORY: Head injury x2 days ago with headac he and neck pain CT DLP: 1256.3 mGycm. Automated Exposure Control for Dose Reduction was Utilized. TECHNIQUE: CT scan of the head and cervical spine are performed without contrast. FINDINGS: There is no acute intracranial hemorrhage, mass effect, or midline shift identified. The ventricles and sulci are within normal limits in size. Deluca-white matter differentiation is maintain ed. The globes are intact and the visualized sinuses are clear. The calvarium is intact. Cervical spine is visualized in its entirety from C1 through upper thoracic levels and redemonstrates straightened alignment without evidence of acute fracture or dislocation. Persistent grade 1 retrol isthesis C6 on C7. Prevertebral soft tissue appears within normal limits. The C1-C2 articulation is within normal limits on the coronal images. Vertebral body heights and disc space heights are fairly well maintained. Spinal canal preserved. Axial images show normal sized thyroid and lung apices with out pneumothorax. IMPRESSION: 1. There is no acute fracture or dislocation evident in the cervical spine. 2. No acute intracranial hemorrhage or midline shift is seen.
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
== END 2020-03-21 18:28 | disposition home or self-care (01) ==
LOC: EC 16:09
DX: S00.03XA Contusion of scalp, initial encounter (principal); F17.200 Nicotine dependence, unspecified, uncomplicated; G43.909 Migraine, unspecified, not intractable, without status migrainosus; G89.29 Other chronic pain; M54.9 Dorsalgia, unspecified; Z79.82 Long term (current) use of aspirin; Z79.899 Other long term (current) drug therapy; Z91.048 Other nonmedicinal substance allergy status; Z88.1 Allergy status to other antibiotic agents; Z88.5 Allergy status to narcotic agent; Z88.2 Allergy status to sulfonamides; W18.39XA Other fall on same level, initial encounter
CPT/HCPCS: 70450; 72125; 99283

== ENCOUNTER → 2020-08-26 | Outpatient (CLI) | payer OTHER | END | disposition home or self-care (01) | LOC: LABWHC1 14:53 | PROVIDERS: ATTEND Nurse Practitioner Family | DX: R51.9 Headache, unspecified (principal); R09.81 Nasal congestion; R53.83 Other fatigue | CPT/HCPCS: U0003; C9803; U0005 ==

== ENCOUNTER → 2021-10-18 | Outpatient (CLI) | payer OTHER ==
--- NOTE | 2021-10-18 12:17 | MM ---
Reason for exam: clinical finding. Last mammogram was performed 3 years and 10 months ago. History: Patient is postmenopausal. Family history of breast cancer in mother at age 50 and breast cancer in maternal aunt at age 50. Physical Findings: A clinical breast exam by your physician is recommended on an annual basis and results should be correlated with mammographic findings. MG 3D Diag Mammo W/Cad GONSALO Bilateral CC, MLO, and XCCL view(s) were taken. Prior study comparison: December 13, 2017, bilateral MG diagnostic mammo w CAD GONSALO. The breast tissue is heterogeneously dense. This may lower the sensitivity of mammography. There is no discrete abnormality including area of concern. Ultrasound recommended. These results were verbally communicated with the patient and result sheet given to the patient on 10/18/21. ASSESSMENT: Incomplete: need additional imaging evaluation, BI-RAD 0 RECOMMENDATION: Ultrasound of the right breast. Manage patient on a clinical basis.
--- NOTE | 2021-10-18 12:18 | USB ---
Reason for exam: additional evaluation requested from abnormal screening. History: Patient is postmenopausal. Family history of breast cancer in mother at age 50 and breast cancer in maternal aunt at age 50. Physical Findings: A clinical breast exam by your physician is recommended on an annual basis and results should be correlated with mammographic findings. US Breast Limited RT Right limited breast ultrasound including focal area of concern, retroareolar and axilla demonstrates no cystic or solid lesion seen. Scanned 1-3 o'clock. These results were verbally communicated with the patient and result sheet given to the patient on 10/18/21. ASSESSMENT: Negative, BI-RAD 1 RECOMMENDATION: Routine screening mammogram of both breasts at age 38. Manage patient on a clinical basis.
== END | disposition home or self-care (01) ==
LOC: RADMAMWWP 10:09
PROVIDERS: ATTEND Family Medicine
DX: N63.12 Unspecified lump in the right breast, upper inner quadrant (principal); Z80.3 Family history of malignant neoplasm of breast; Z78.0 Asymptomatic menopausal state
CPT/HCPCS: 77066; 76642; G0279; 77062